=== PATIENT | male | born 1950 | race African-American/Black ===

== ENCOUNTER 2017-06-19 02:01 | Emergency (ER) | payer MEDICARE, MEDICAID ==
[~2017-06-19] VITALS: Ht 177.8 cm; Wt 59.0 kg
[~2017-06-19 02:01] MED LIST: ALBU6.7H INH; FLUT1DIS3 INH; LEVO500T2 PO; P20 PO; PRED5TAB48 PO; QUET100T PO
[2017-06-19] MEDS ORDERED: PREDNISONE 20MG TABLET PO STA (04:06)
[2017-06-19] MEDS ORDERED: IPRATROPIUM BROMIDE (0.02%) 0.5MG/2.5ML NEB HHN STA (04:06)
[2017-06-19] MEDS ORDERED: ALBUTEROL (0.083%) 2.5MG/3ML NEB HHN SCH (04:30)
[2017-06-19] MEDS ORDERED: IPRATROPIUM/ALBUTEROL 0.5-3(2.5)MG/3ML NEB ONE (04:45)
[2017-06-19] MEDS ORDERED: ALBUTEROL (0.5%) 2.5MG/0.5ML NEB HHN ONE (04:45)
[2017-06-19 06:06] VITALS: BP 120/80
== END 2017-06-19 06:15 | disposition home or self-care (01) ==
LOC: ER 02:12
DX: J44.9 Chronic obstructive pulmonary disease, unspecified (principal); R03.0 Elevated blood-pressure reading, without diagnosis of hypertension; Z87.891 Personal history of nicotine dependence; Z88.0 Allergy status to penicillin; Z79.899 Other long term (current) drug therapy
CPT/HCPCS: 94640; 99283; J7512; J7611; J7620; Z7610

== ENCOUNTER 2017-07-08 22:26 | Emergency (ER) | payer MEDICARE, MEDICAID ==
[~2017-07-08] VITALS: Ht 157.5 cm; Wt 59.0 kg
[2017-07-08] MEDS ORDERED: PREDNISONE 20MG TABLET PO STA (23:21)
[2017-07-09] MEDS ORDERED: IPRATROPIUM/ALBUTEROL 0.5-3(2.5)MG/3ML NEB HHN ONE
[2017-07-09] MEDS ORDERED: ALBUTEROL (0.083%) 2.5MG/3ML NEB HHN STA (00:48)
[2017-07-09] MEDS ORDERED: IPRATROPIUM BROMIDE (0.02%) 0.5MG/2.5ML NEB HHN STA (00:48)
[2017-07-09 02:46] VITALS: BP 120/87
== END 2017-07-09 02:59 | disposition home or self-care (01) ==
LOC: ER 22:26
DX: J44.1 Chronic obstructive pulmonary disease with (acute) exacerbation (principal); Z88.0 Allergy status to penicillin
CPT/HCPCS: 71045; 94640; 99284; J7512; J7611; J7620

== ENCOUNTER 2017-09-13 20:29 | Emergency (ER) | payer MEDICARE, MEDICAID ==
[~2017-09-13] VITALS: Ht 177.8 cm; Wt 59.0 kg
[2017-09-13] MEDS ORDERED: PREDNISONE 20MG TABLET PO STA (22:48)
[2017-09-13] MEDS ORDERED: ALBUTEROL (0.083%) 2.5MG/3ML NEB HHN STA (22:48)
[2017-09-13] MEDS ORDERED: IPRATROPIUM BROMIDE (0.02%) 0.5MG/2.5ML NEB HHN STA (22:48)
[2017-09-14 02:14] VITALS: BP 125/80
== END 2017-09-14 02:20 | disposition home or self-care (01) ==
LOC: ER 20:38
DX: J44.1 Chronic obstructive pulmonary disease with (acute) exacerbation (principal); Z87.891 Personal history of nicotine dependence; Z88.0 Allergy status to penicillin
CPT/HCPCS: 71045; 94644; 99285; J7512; J7611

== ENCOUNTER 2017-10-02 21:03 | Inpatient (IN) | payer MEDICARE, MEDICAID ==
[~2017-10-02] VITALS: Ht 175.3 cm; Wt 61.2 kg
[2017-10-02] MEDS ORDERED: SODIUM CHLORIDE 0.9% 500 ML IV ONE (21:09)
[2017-10-02] MEDS ORDERED: METHYLPREDNISOLONE SOD SUCC 125 MG/2 ML VIAL IV STA (21:09)
[2017-10-02] MEDS ORDERED: ONDANSETRON HCL 4MG/2ML VIAL IV STA (21:09)
[2017-10-02] MEDS ORDERED: IPRATROPIUM/ALBUTEROL 0.5-3(2.5)MG/3ML NEB HHN ONE (21:15)
[2017-10-02] MEDS ORDERED: LEVOFLOXACIN 500MG PREMIX 100 ML IV ONE (21:15)
[2017-10-02] MEDS ORDERED: MAGNESIUM 2 G PREMIX 50 ML IV ONE (21:15)
[2017-10-02 21:36] LABS: BG BASE EXCESS -1.9 mmol/L (-2.0-2.0); BG BILEVEL POS AIRWAY PRESSURE 15/5; BG CARBOXYHEMOGLOBIN 0.3 % (0.5-1.5); BG DEOXYHEMOGLOBIN 3.4 % (0.0-5.0); BG FRACTION INSPIRED OXYGEN 40; BG HCO3 ACT 25.5 mmol/L (22.0-26.0); BG METHEMOGLOBIN 0.1 % (0.0-1.5); BG OXYGEN SATURATION 96.6 % (92.0-98.5); BG OXYHEMOGLOBIN 96.2 % (94.0-97.0); BG PCO2 54.8 mmHg (35.0-45.0); BG PH 7.285 (7.350-7.450); BG PO2 103.1 mmHg (75.0-100.0); BG SAMPLE SITE RIGHT RADIAL; BG TOTAL HEMOGLOBIN 12.7 g/dL (12.0-18.0); BG VENT MODE MASK - BIPAP
[2017-10-02 22:03] LABS: BASOPHILS % 0.6 % (0.0-2.0); EOSINOPHILS % 7.5 % (0.0-5.0); LYMPHOCYTES % 25.4 % (20.0-50.0); MEAN CORPUSCULAR HEMOGLOBIN 32.9 pg (28.0-32.0); MEAN CORPUSCULAR VOLUME 96.2 fL (80.0-94.0); MEAN PLATELET VOLUME 6.2 fl (7.4-10.4); MONOCYTES % 7.3 % (2.0-8.0); NEUTROPHILS % 59.2 % (40.0-76.0); PLATELET 425 x1000/uL (130-400); RED BLOOD CELL COUNT 3.95 mill/uL (4.7-6.1); RED CELL DISTRIBUTION WIDTH 13.5 % (11.6-14.6)
[2017-10-02 22:07] LABS: CHLORIDE 107 mEq/L (98-107)
[2017-10-02 22:13] LABS: D-DIMER < 0.19 mg/L FEU (<0.50); INR 0.9; PROTHROMBIN TIME 9.9 sec (9.4-11.6)
[2017-10-02 22:17] LABS: CREATINE KINASE 207 IU/L (39-308)
[2017-10-03 00:45] LABS: CLARITY URINE CLEAR (CLEAR); COLOR URINE YELLOW (YELLOW); KETONES URINE NEGATIVE (NEGATIVE); LEUKOCYTE ESTERASE URINE NEGATIVE (NEGATIVE); NITRITE URINE POSITIVE (NEGATIVE); OCCULT BLOOD URINE NEGATIVE (NEGATIVE); PROTEIN URINE NEGATIVE (NEGATIVE); SPECIFIC GRAVITY URINE 1.021 (1.005-1.030); UROBILINOGEN URINE 0.2 E.U./dL (0.2-1.0)
[2017-10-03] MEDS ORDERED: GUAIFENESIN 200MG/10ML SUGAR FREE UDC PO PRN (00:45)
[2017-10-03] MEDS ORDERED: MORPHINE SULFATE 4 MG/ML CPJ (NOT FOR IM USE) IV PRN (00:45)
[2017-10-03] MEDS ORDERED: ACETAMINOPHEN 325MG TABLET PO PRN (00:45)
[2017-10-03] MEDS ORDERED: MAGNESIUM/ALUMINUM HYDROXIDE/SIMETHICONE 30ML UDC PO PRN (00:45)
[2017-10-03] MEDS ORDERED: IPRATROPIUM/ALBUTEROL 0.5-3(2.5)MG/3ML NEB INH PRN (00:45)
[2017-10-03] MEDS ORDERED: ONDANSETRON HCL 4MG/2ML VIAL IV PRN (00:45)
[2017-10-03] MEDS ORDERED: DOCUSATE SODIUM 100MG CAPSULE PO PRN (00:45)
[2017-10-03] MEDS ORDERED: LORAZEPAM 2MG/ML CPJ IV PRN (00:45)
[2017-10-03] MEDS ORDERED: CLONIDINE 0.1MG TABLET PO PRN (00:45)
[2017-10-03] MEDS ORDERED: NA PHOS,M-B/NA PHOS,DI-BA ENEMA 118ML PR PRN (00:45)
[2017-10-03] MEDS ORDERED: DIPHENHYDRAMINE 50MG/ML VIAL IV PRN (00:45)
[2017-10-03 00:57] LABS: *AMPHETAMINES SCREEN URINE NEGATIVE (NEGATIVE); *BARBITURATES SCREEN URINE NEGATIVE (NEGATIVE); *BENZODIAZEPINES SCREEN URINE NEGATIVE (NEGATIVE); *COCAINE SCREEN URINE NEGATIVE (NEGATIVE)
[2017-10-03 00:58] LABS: CANNABINOID URINE SCREEN PRESUMTIVE POSITIVE (NEGATIVE); METHADONE URINE SCREEN NEGATIVE (NEGATIVE); OPIATES URINE SCREEN NEGATIVE (NEGATIVE); PHENCYCLIDINE URINE SCREEN NEGATIVE (NEGATIVE)
[2017-10-03 04:32] LABS: CHLORIDE 109 mEq/L (98-107)
[2017-10-03 08:00] VITALS: BP 126/80
[2017-10-03] MEDS ORDERED: ASPIRIN 81MG EC TABLET PO SCH (09:00)
[2017-10-03 10:30] VITALS: BP 126/80
[2017-10-03 12:00] VITALS: BP 138/85
[2017-10-03] MEDS: METHYLPREDNISOLONE SOD SUCC 125 MG/2 ML VIAL IV SCH ×3 (13:47→23:19)
[2017-10-03] MEDS: ASPIRIN 81MG TABLET PO SCH (13:47)
[2017-10-03] MEDS: ENOXAPARIN 40MG/0.4ML SYR SUBCUT SCH (13:48)
[2017-10-03 16:00] VITALS: BP 121/76
[2017-10-03 17:46] LABS: CREATINE KINASE 205 IU/L (39-308)
[2017-10-03] MEDS ORDERED: TIOT4MIS5 IH (17:46)
[2017-10-03 17:47] LABS: CREATINE KINASE MB FRACTION 4.8 ng/mL (0.5-3.6)
[2017-10-03 20:00] VITALS: BP 135/75
[2017-10-03] MEDS ORDERED: LEVOFLOXACIN 500MG PREMIX 100 ML IV SCH (22:00)
[2017-10-03] MEDS: ZOLPIDEM TARTRATE 5MG TABLET PO PRN (22:38)
[2017-10-04] VITALS: BP 125/78
[2017-10-04 01:20] LABS: CREATINE KINASE MB FRACTION 3.7 ng/mL (0.5-3.6)
[2017-10-04] MEDS: IPRATROPIUM/ALBUTEROL 0.5-3(2.5)MG/3ML NEB HHN SCH ×3 (01:24→20:49)
[2017-10-04 04:00] VITALS: BP 130/74
[2017-10-04] MEDS: METHYLPREDNISOLONE SOD SUCC 125 MG/2 ML VIAL IV SCH ×2 (05:46→14:23)
[2017-10-04 08:00] VITALS: BP 130/81
[2017-10-04 08:22] LABS: HEMATOCRIT. 37.1 % (42.0-52.0); HEMOGLOBIN. 12.4 g/dL (14.0-18.0); MEAN CORPUSCULAR HEMOGLOBIN 32.2 pg (28.0-32.0); MEAN CORPUSCULAR VOLUME 96.4 fL (80.0-94.0); MEAN PLATELET VOLUME 6.7 fl (7.4-10.4); PLATELET 399 x1000/uL (130-400); RED BLOOD CELL COUNT 3.84 mill/uL (4.7-6.1); RED CELL DISTRIBUTION WIDTH 13.5 % (11.6-14.6)
[2017-10-04 08:41] LABS: CHLORIDE 104 mEq/L (98-107)
[2017-10-04 09:05] LABS: T4 FREE 0.62 ng/dL (0.76-1.46)
[2017-10-04 09:07] LABS: LDL CHOLESTEROL 103 mg/dL (5-100)
[2017-10-04 09:08] LABS: CREATINE KINASE 153 IU/L (39-308); CREATINE KINASE MB FRACTION 3.4 ng/mL (0.5-3.6)
[2017-10-04 09:20] LABS: HDL CHOLESTEROL 140 mg/dL (40-59)
[2017-10-04] MEDS: ASPIRIN 81MG TABLET PO SCH (10:18)
[2017-10-04] MEDS: ENOXAPARIN 40MG/0.4ML SYR SUBCUT SCH (10:18)
[2017-10-04 12:05] VITALS: BP 134/80
[2017-10-04 16:00] VITALS: BP 128/79
[2017-10-04 16:07] LABS: PLATELET ESTIMATE NORMAL
[2017-10-04 20:00] VITALS: BP 118/70
[2017-10-04] MEDS: BUDESONIDE 0.5MG/2ML NEB HHN SCH (20:49)
[2017-10-04] MEDS: ZOLPIDEM TARTRATE 5MG TABLET PO PRN (23:53)
[2017-10-04] MEDS: LEVOFLOXACIN 500MG PREMIX 100 ML IV SCH (23:56)
[2017-10-05] VITALS: BP 122/88
[2017-10-05] MEDS: IPRATROPIUM/ALBUTEROL 0.5-3(2.5)MG/3ML NEB HHN SCH ×5 (01:53→20:57)
[2017-10-05 04:00] VITALS: BP 114/77
[2017-10-05] MEDS: BUDESONIDE 0.5MG/2ML NEB HHN SCH ×2 (07:59→20:53)
[2017-10-05 08:00] VITALS: BP 124/82
[2017-10-05] MEDS: ASPIRIN 81MG TABLET PO SCH (09:23)
[2017-10-05] MEDS: ENOXAPARIN 40MG/0.4ML SYR SUBCUT SCH (09:24)
[2017-10-05 12:00] VITALS: BP 108/78
[2017-10-05 16:00] VITALS: BP 118/84
[2017-10-05 20:00] VITALS: BP 117/75
[2017-10-05] MEDS: LEVOFLOXACIN 500MG PREMIX 100 ML IV SCH (23:40)
[2017-10-06] VITALS: BP 111/80
[2017-10-06] MEDS: ZOLPIDEM TARTRATE 5MG TABLET PO PRN (00:27)
[2017-10-06 04:00] VITALS: BP 98/68
[2017-10-06] MEDS: IPRATROPIUM/ALBUTEROL 0.5-3(2.5)MG/3ML NEB HHN SCH ×2 (04:00→07:22)
[2017-10-06] MEDS: BUDESONIDE 0.5MG/2ML NEB HHN SCH (07:22)
[2017-10-06 08:00] VITALS: BP 110/63
[2017-10-06] MEDS: ENOXAPARIN 40MG/0.4ML SYR SUBCUT SCH (08:46)
[2017-10-06] MEDS: ASPIRIN 81MG TABLET PO SCH (08:46)
[2017-10-06 10:11] VITALS: BP 110/68
== END 2017-10-06 11:30 | disposition home or self-care (01) | DRG 140 ==
LOC: ER 21:03 → EDBEDREQSVC 10-03 00:18 → EDBEDREQ 10-03 00:18 → 5WST 10-03 00:21 → ENRESERV 10-03 08:38
PROVIDERS: ADMIT Internal Medicine; ATTEND Internal Medicine
PROC: 5A09357 Assistance with Respiratory Ventilation, Less than 24 Consecutive Hours, Continuous Positive Airway Pressure (ICD-10-PCS; principal; 2017-10-02)
DX: J44.1 Chronic obstructive pulmonary disease with (acute) exacerbation (principal); J96.02 Acute respiratory failure with hypercapnia; J69.0 Pneumonitis due to inhalation of food and vomit; I50.32 Chronic diastolic (congestive) heart failure; I11.0 Hypertensive heart disease with heart failure; E46 Unspecified protein-calorie malnutrition; E87.6 Hypokalemia; N39.0 Urinary tract infection, site not specified; E78.2 Mixed hyperlipidemia; F10.10 Alcohol abuse, uncomplicated; F12.90 Cannabis use, unspecified, uncomplicated; F17.200 Nicotine dependence, unspecified, uncomplicated; F32.9 Major depressive disorder, single episode, unspecified; Z79.899 Other long term (current) drug therapy; Z82.49 Family history of ischemic heart disease and other diseases of the circulatory system; Z83.3 Family history of diabetes mellitus; Z88.0 Allergy status to penicillin; Z79.01 Long term (current) use of anticoagulants; Z68.1 Body mass index [BMI] 19.9 or less, adult
CPT/HCPCS: 36415; 36600; 71045; 80048; 80053; 80061; 80305; 81003; 82375; 82550; 82553; 82805; 83036; 83605; 83690; 83880; 84439; 84443; 84484; 85025; 85379; 85610; 85730; 87040; 93005; 93306; 93970; 94640; 94660; 96361; 96365; 96367; 96375; 99291; J1650; J1956; J2405; J2930; J3475; J7040; J7050; J7620; J7626

== ENCOUNTER 2017-12-27 04:54 | Emergency (ER) | payer MEDICARE, MEDICAID ==
[~2017-12-27] VITALS: Ht 182.9 cm; Wt 61.0 kg
[~2017-12-27 04:54] MED LIST changes: +TIOT4MIS5 IH
[2017-12-27] MEDS ORDERED: METHYLPREDNISOLONE SOD SUCC 125 MG/2 ML VIAL IV STA (05:23)
[2017-12-27] MEDS ORDERED: ALBUTEROL (0.083%) 2.5MG/3ML NEB HHN STA (05:23)
[2017-12-27] MEDS ORDERED: IPRATROPIUM BROMIDE (0.02%) 0.5MG/2.5ML NEB HHN STA (05:23)
[2017-12-27 07:15] VITALS: BP 114/81
== END 2017-12-27 07:25 | disposition home or self-care (01) ==
LOC: ER 04:54
DX: J44.1 Chronic obstructive pulmonary disease with (acute) exacerbation (principal); I10 Essential (primary) hypertension; Z79.899 Other long term (current) drug therapy; R45.1 Restlessness and agitation
CPT/HCPCS: 71045; 94644; 96374; 99285; J2930; J7611; 94640

== ENCOUNTER 2018-01-07 08:04 | Emergency (ER) | payer MEDICARE, MEDICAID ==
[~2018-01-07] VITALS: Ht 172.7 cm; Wt 70.0 kg
[2018-01-07] MEDS ORDERED: IPRATROPIUM BROMIDE (0.02%) 0.5MG/2.5ML NEB HHN STA (08:18)
[2018-01-07] MEDS ORDERED: METHYLPREDNISOLONE SOD SUCC 125 MG/2 ML VIAL IV STA (08:18)
[2018-01-07] MEDS ORDERED: ALBUTEROL (0.083%) 2.5MG/3ML NEB HHN STA (08:18)
[2018-01-07] MEDS ORDERED: MAGNESIUM 2 G PREMIX 50 ML IV ONE (08:30)
[2018-01-07 08:49] LABS: BASOPHILS % 0.6 % (0.0-2.0); CHLORIDE 102 mEq/L (98-107); EOSINOPHILS % 5.1 % (0.0-5.0); HEMATOCRIT. 36.6 % (42.0-52.0); HEMOGLOBIN. 12.3 g/dL (14.0-18.0); LYMPHOCYTES % 19.7 % (20.0-50.0); MEAN CORPUSCULAR HEMOGLOBIN 32.3 pg (28.0-32.0); MEAN CORPUSCULAR VOLUME 96.4 fL (80.0-94.0); MEAN PLATELET VOLUME 6.4 fl (7.4-10.4); MONOCYTES % 8.6 % (2.0-8.0); PLATELET 346 x1000/uL (130-400); RED BLOOD CELL COUNT 3.79 mill/uL (4.7-6.1); RED CELL DISTRIBUTION WIDTH 14.9 % (11.6-14.6)
[2018-01-07 10:55] VITALS: BP 120/80
== END 2018-01-07 11:05 | disposition home or self-care (01) ==
LOC: ER 08:21
DX: J44.1 Chronic obstructive pulmonary disease with (acute) exacerbation (principal); I10 Essential (primary) hypertension; Z87.891 Personal history of nicotine dependence
CPT/HCPCS: 36415; 71045; 80053; 83880; 85025; 87040; 94640; 96365; 96366; 96375; 99285; J2930; J3475; J7611

== ENCOUNTER 2018-02-04 12:37 | Emergency (ER) | payer MEDICARE, MEDICAID ==
[~2018-02-04] VITALS: Ht 177.8 cm; Wt 64.0 kg
[~2018-02-04 12:37] MED LIST changes: -LEVO500T2 PO; -QUET100T PO
[2018-02-04] MEDS ORDERED: ALBUTEROL (0.083%) 2.5MG/3ML NEB HHN STA (13:37)
[2018-02-04] MEDS ORDERED: METHYLPREDNISOLONE SOD SUCC 125 MG/2 ML VIAL IV STA (13:37)
[2018-02-04] MEDS ORDERED: IPRATROPIUM BROMIDE (0.02%) 0.5MG/2.5ML NEB HHN STA (13:37)
[2018-02-04 15:04] LABS: BASOPHILS % 0.8 % (0.0-2.0); EOSINOPHILS % 7.7 % (0.0-5.0); HEMATOCRIT. 36.6 % (42.0-52.0); HEMOGLOBIN. 12.3 g/dL (14.0-18.0); LYMPHOCYTES % 24.1 % (20.0-50.0); MEAN CORPUSCULAR HEMOGLOBIN 32.5 pg (28.0-32.0); MEAN CORPUSCULAR VOLUME 96.7 fL (80.0-94.0); MEAN PLATELET VOLUME 6.6 fl (7.4-10.4); MONOCYTES % 6.7 % (2.0-8.0); NEUTROPHILS % 60.7 % (40.0-76.0); PLATELET 329 x1000/uL (130-400); RED BLOOD CELL COUNT 3.78 mill/uL (4.7-6.1); RED CELL DISTRIBUTION WIDTH 14.3 % (11.6-14.6)
[2018-02-04 15:08] LABS: CHLORIDE 110 mEq/L (98-107)
[2018-02-04 16:23] VITALS: BP 128/72
== END 2018-02-04 16:26 | disposition home or self-care (01) ==
LOC: ER 12:37
DX: J44.1 Chronic obstructive pulmonary disease with (acute) exacerbation (principal); Z88.0 Allergy status to penicillin; Z79.899 Other long term (current) drug therapy
CPT/HCPCS: 36415; 71045; 80053; 83880; 84484; 85025; 93005; 94640; 99285; J2930; J7611

== ENCOUNTER 2019-10-12 16:23 | Emergency (ER) | payer MEDICARE, MEDICAID ==
[~2019-10-12] VITALS: Ht 177.8 cm; Wt 64.0 kg
[~2019-10-12 16:23] MED LIST changes: -ALBU6.7H INH; +ALBU6.7H11 INH
[2019-10-12] MEDS ORDERED: ALBUTEROL (0.083%) 2.5MG/3ML NEB HHN STA (16:32)
[2019-10-12] MEDS ORDERED: IPRATROPIUM BROMIDE (0.02%) 0.5MG/2.5ML NEB HHN STA (16:32)
[2019-10-12] MEDS ORDERED: MAGNESIUM 2 G PREMIX 50 ML IV SCH (16:45)
[2019-10-12] MEDS ORDERED: METHYLPREDNISOLONE SOD SUCC 125 MG/2 ML VIAL IV SCH (16:45)
[2019-10-12 18:06] LABS: BASOPHILS % 0.5 % (0.0-2.0); EOSINOPHILS % 8.3 % (0.0-5.0); LYMPHOCYTES % 11.5 % (20.0-50.0); MEAN CORPUSCULAR HEMOGLOBIN 31.4 pg (28.0-32.0); MEAN CORPUSCULAR VOLUME 94.1 fL (80.0-94.0); MEAN PLATELET VOLUME 6.3 fl (7.4-10.4); MONOCYTES % 8.5 % (2.0-8.0); NEUTROPHILS % 71.2 % (40.0-76.0); PLATELET 385 x1000/uL (130-400); RED BLOOD CELL COUNT 3.19 mill/uL (4.7-6.1); RED CELL DISTRIBUTION WIDTH 16.7 % (11.6-14.6)
[2019-10-12 18:12] LABS: CHLORIDE 107 mEq/L (98-107)
[2019-10-12 20:53] VITALS: BP 127/88
[2019-10-16] MEDS ORDERED: AMLO5TAB88 PO (10:47)
== END 2019-10-12 20:59 | disposition home or self-care (01) ==
LOC: ER 16:23
DX: J44.1 Chronic obstructive pulmonary disease with (acute) exacerbation (principal); J44.9 Chronic obstructive pulmonary disease, unspecified; Z79.899 Other long term (current) drug therapy; Z88.0 Allergy status to penicillin
CPT/HCPCS: 36415; 71045; 80053; 83880; 84484; 85025; 93005; 94644; 96365; 96375; 99285; J2930; J3475

== ENCOUNTER 2020-08-23 18:47 | Inpatient (IN) | payer MEDICARE, MEDICAID ==
[~2020-08-23] VITALS: Ht 177.8 cm; Wt 64.4 kg
[~2020-08-23 18:47] MED LIST changes: +AMLO5TAB88 PO; -P20 PO; -PRED5TAB48 PO
[2020-08-23] MEDS ORDERED: METHYLPREDNISOLONE SOD SUCC 125 MG/2 ML VIAL IV STA (19:14)
[2020-08-23] MEDS ORDERED: IPRATROPIUM BROMIDE (0.02%) 0.5MG/2.5ML NEB HHN STA (19:14)
[2020-08-23] MEDS ORDERED: SODIUM CHLORIDE 0.9% 1,000 ML IV ONE (19:15)
[2020-08-23] MEDS ORDERED: MAGNESIUM 2 G PREMIX 50 ML IV ONE (19:15)
[2020-08-23 19:28] LABS: BASOPHILS % 0.9 % (0.0-2.0); EOSINOPHILS % 12.4 % (0.0-5.0); HEMATOCRIT. 24.9 % (42.0-52.0); LYMPHOCYTES % 20.5 % (20.0-50.0); MEAN CORPUSCULAR VOLUME 83.5 fL (80.0-94.0); MEAN PLATELET VOLUME 6.4 fl (7.4-10.4); MONOCYTES % 8.7 % (2.0-8.0); NEUTROPHILS % 57.5 % (40.0-76.0); PLATELET 475 x1000/uL (130-400); RED BLOOD CELL COUNT 2.98 mill/uL (4.7-6.1); RED CELL DISTRIBUTION WIDTH 16.4 % (11.6-14.6)
[2020-08-23] MEDS: ALBUTEROL (0.083%) 2.5MG/3ML NEB HHN SCH ×3 (19:32→20:19)
[2020-08-23 19:34] LABS: CHLORIDE 103 mEq/L (98-107)
[2020-08-24 09:00] VITALS: BP_SYST 138; BP_SYST 146; BP_DIAS 89
[2020-08-24] MEDS ORDERED: P20 PO (10:06)
[2020-08-24] MEDS ORDERED: ACETAMINOPHEN 325MG TABLET PO PRN (10:15)
[2020-08-24] MEDS ORDERED: ONDANSETRON HCL 4MG/2ML INJ IV PRN (10:15)
[2020-08-24] MEDS: METHYLPREDNISOLONE SOD SUCC 40 MG/ML VIAL IV SCH ×2 (10:40→17:18)
[2020-08-24 12:00] VITALS: BP 153/89
[2020-08-24] MEDS: ALBUTEROL 6.7GM HFA INHALER ORI SCH ×3 (15:35→22:15)
[2020-08-24 16:00] VITALS: BP 148/82
[2020-08-24] MEDS: HYDROCODONE/ACETAMINOPHEN 10/325MG TABLET PO PRN (16:18)
[2020-08-24 19:40] LABS: CLARITY URINE CLEAR (CLEAR); COLOR URINE YELLOW (YELLOW); KETONES URINE NEGATIVE (NEGATIVE); LEUKOCYTE ESTERASE URINE NEGATIVE (NEGATIVE); NITRITE URINE NEGATIVE (NEGATIVE); OCCULT BLOOD URINE NEGATIVE (NEGATIVE); PH URINE 7.5 (4.5-8.0); PROTEIN URINE NEGATIVE (NEGATIVE); SPECIFIC GRAVITY URINE 1.018 (1.005-1.030); UROBILINOGEN URINE 0.2 E.U./dL (0.2-1.0)
[2020-08-24 19:59] LABS: *AMPHETAMINES SCREEN URINE NEGATIVE (NEGATIVE); *BARBITURATES SCREEN URINE NEGATIVE (NEGATIVE)
[2020-08-24 20:00] VITALS: BP 149/90
[2020-08-24 20:00] LABS: *BENZODIAZEPINES SCREEN URINE NEGATIVE (NEGATIVE); *COCAINE SCREEN URINE NEGATIVE (NEGATIVE); CANNABINOID URINE SCREEN NEGATIVE (NEGATIVE); METHADONE URINE SCREEN NEGATIVE (NEGATIVE); OPIATES URINE SCREEN NEGATIVE (NEGATIVE); PHENCYCLIDINE URINE SCREEN NEGATIVE (NEGATIVE)
[2020-08-24] MEDS: FAMOTIDINE 20MG TABLET PO SCH (20:26)
[2020-08-24] MEDS: ZOLPIDEM TARTRATE 5MG TABLET PO PRN (21:10)
[2020-08-25] MEDS: METHYLPREDNISOLONE SOD SUCC 40 MG/ML VIAL IV SCH ×3 (01:23→17:51)
[2020-08-25 04:00] VITALS: BP 162/103
[2020-08-25] MEDS: HYDROCODONE/ACETAMINOPHEN 10/325MG TABLET PO PRN ×2 (06:32→17:52)
[2020-08-25 06:36] VITALS: BP 163/94
[2020-08-25 08:00] VITALS: BP 143/86
[2020-08-25 08:54] LABS: TOTAL IRON BINDING CAPACITY 456 ug/dL (250-450)
[2020-08-25 12:00] VITALS: BP 142/92
[2020-08-25] MEDS ORDERED: IPRATROPIUM/ALBUTEROL 0.5-3(2.5)MG/3ML NEB HHN PRN (12:00)
[2020-08-25] MEDS: AMLODIPINE 10MG TABLET PO SCH (13:26)
[2020-08-25 16:00] VITALS: BP 156/97
[2020-08-25] MEDS ORDERED: AMLO5TAB88 PO (16:50)
[2020-08-25] MEDS ORDERED: ALBU6.7H11 INH (16:50)
[2020-08-25] MEDS ORDERED: IPRA3AMP9 HHN (16:50)
[2020-08-25] MEDS ORDERED: FLUT1DIS3 INH (16:50)
[2020-08-25] MEDS ORDERED: P20 MT (16:50)
[2020-08-25] MEDS: IPRATROPIUM/ALBUTEROL 0.5-3(2.5)MG/3ML NEB HHN SCH (20:27)
[2020-08-25 20:31] VITALS: BP 143/70
[2020-08-25] MEDS: ZOLPIDEM TARTRATE 5MG TABLET PO PRN (20:40)
[2020-08-25] MEDS: FAMOTIDINE 20MG TABLET PO SCH (20:40)
[2020-08-26 00:27] VITALS: BP 147/76
[2020-08-26] MEDS: IPRATROPIUM/ALBUTEROL 0.5-3(2.5)MG/3ML NEB HHN SCH ×3 (01:14→13:00)
[2020-08-26] MEDS: METHYLPREDNISOLONE SOD SUCC 40 MG/ML VIAL IV SCH ×2 (01:22→10:12)
[2020-08-26 04:00] VITALS: BP 134/75
[2020-08-26 08:00] VITALS: BP 151/99
[2020-08-26] MEDS: AMLODIPINE 10MG TABLET PO SCH (08:52)
[2020-08-26] MEDS: HYDROCODONE/ACETAMINOPHEN 10/325MG TABLET PO PRN ×2 (08:54)
[2020-08-26 12:00] VITALS: BP 150/94
[2020-08-26] MEDS ORDERED: P20 PO (13:34)
[2020-08-26] MEDS ORDERED: TIOT4MIS5 IH (13:34)
[2020-08-26 13:58] VITALS: BP 150/94
[2020-08-26 16:13] VITALS: BP 144/92
== END 2020-08-26 19:58 | disposition home or self-care (01) | DRG 140 ==
LOC: ER 18:47 → 7WST 22:08 → EDBEDREQ 22:34 → EDBEDREQTM 22:34 → ENRESERV 08-24 07:29 → 7WST 08-24 09:20 → 6WST 08-24 23:50
PROVIDERS: ADMIT Internal Medicine; ATTEND Internal Medicine
DX: J44.1 Chronic obstructive pulmonary disease with (acute) exacerbation (principal); J96.01 Acute respiratory failure with hypoxia; I10 Essential (primary) hypertension; D64.9 Anemia, unspecified; G89.29 Other chronic pain; F41.9 Anxiety disorder, unspecified; F32.9 Major depressive disorder, single episode, unspecified; D72.10 Eosinophilia, unspecified; Z91.14 Patient's other noncompliance with medication regimen; Z20.822 Contact with and (suspected) exposure to COVID-19
CPT/HCPCS: 36415; 71045; 80053; 80305; 81003; 82728; 83540; 83550; 83880; 84484; 85025; 93005; 94640; 96365; 99291; J2920; J2930; J3475; J7030; U0003